=== PATIENT | female | born 1940 | race Caucasian/White ===

== ENCOUNTER 2017-09-04 00:53 | Observation (INO) | payer MEDICARE ==
[~2017-09-04] VITALS: Ht 157.5 cm; Wt 68.5 kg
[~2017-09-04 00:53] MED LIST: DILTIAZEM 24HR120 M1 PO
--- OUTSIDE RECORDS SUMMARY | 2017-09-04 00:57 | XMS REPORT ---
[facility] Address Unknown Phone Unavailable Care Team Providers Care Skein Winder Name Role Phone KIM HAMILTON Unavailable Unavailable Problems This patient has no known problems. Allergies, Adverse Reactions, Alerts This patient has no known allergies or adverse reactions. Medications This patient has no known medications. Results Test Description Test Time Test Comments Text Results Atomic Results Result Comments CHEST SINGLE (PORTABLE) [place] [id number] Patient Name: BRITANY AC MR #: [id number] : 1940 Age/Sex: 76/F Req #: [id number] Adm Physician: Ordered by: KIM HAMILTON MD Report #: [id number] Location: ER Room/Bed: Procedure: [id number] DX/CHEST SINGLE (PORTABLE) Exam Date: 03/30/17 Exam Time: 1600 REPORT STATUS: Signed EXAMINATION: Chest, CHEST SINGLE (PORTABLE) INDICATION: Chest pain COMPARISON : None FINDINGS: Examination limited by overlying external monitoring equipment. LINES: None. Heart: Normal cardiac silhouette. Vascular: The pulmonary vasculature is within normal limits. Atherosclerotic calcifications of the aortic arch. Mediastinum: No mediastinal, hilar, or axillary mass or lymphadenopathy. Lungs: No parenchymal mass. No focal consolidation. Pleura: No pleural effusion. No pneumothorax. Bones: No acute osseous abnormality. Degenerative changes of the thoracic spine. Soft tissues: Normal. Impression: No acute radiographic abnormality. Signed by: Dr. Shahrzad Albarran M.D. on 4:27 PM Dictated By: SHAHRZAD ALBARRAN MD 26 Transcribed By: JOAN on 03/30/171626 COPY TO: KIM HAMILTON MD
[2017-09-04] MEDS ORDERED: SODIUM CHLORIDE 0.9% 1000ML 1,000 ML IV STA (01:09)
[2017-09-04] MEDS ORDERED: METOPROLOL TARTRATE INJ 1 MG/ML VIAL IV ONE ×2 (01:15→01:30)
[2017-09-04] MEDS ORDERED: METOPROLOL TARTRATE INJ 1 MG/ML VIAL ONE (01:16)
[2017-09-04] MEDS ORDERED: CLONIDINE HCL0.1 MG PO (01:19)
[2017-09-04] MEDS ORDERED: XARELTO20 MG PO (01:19)
[2017-09-04] MEDS ORDERED: ANASTROZOLE1 MG PO (01:19)
[2017-09-04] MEDS ORDERED: CALTRATE 600 W1 EACH (01:19)
[2017-09-04] MEDS ORDERED: PRAVASTATIN SOD40 MG PO (01:19)
[2017-09-04] MEDS ORDERED: OMEPRAZOLE40 MG PO (01:19)
[2017-09-04] MEDS ORDERED: SODIUM CHLORIDE 0.9% 1000ML 1,000 ML ONE (01:24)
[2017-09-04 01:27] LABS: BASOPHILS # (AUTO) 0.1 (0.0-0.1); BASOPHILS % 0.7 % (0.0-1.0); EOSINOPHILS # (AUTO) 0.2 (0.0-0.4); EOSINOPHILS % 2.4 % (0.0-6.0); HEMATOCRIT 42.5 % (34.2-44.1); HEMOGLOBIN 14.4 g/dL (12.0-16.0); LYMPHOCYTES # (AUTO) 2.6 (1.0-3.2); LYMPHOCYTES % 30.8 % (18.0-39.1); MEAN CORPUSCULAR HEMOGLOBIN 30.1 pg (28-32); MEAN CORPUSCULAR HGB CONC 33.9 g/dL (31-35); MEAN CORPUSCULAR VOLUME 88.9 fL (81-99); MONOCYTES # (AUTO) 0.8 (0.2-0.8); MONOCYTES % 9.5 % (4.4-11.3); NEUTROPHILS # (AUTO) 4.8 (2.1-6.9); NEUTROPHILS % 56.4 % (38.7-80.0); PLATELET COUNT 293 x10e3/uL (140-360); RED BLOOD COUNT 4.78 x10e6/uL (3.6-5.1); RED CELL DISTRIBUTION WIDTH 13.4 % (11.7-14.4)
[2017-09-04 01:28] LABS: BILIRUBIN,URINE NEGATIVE (NEGATIVE); KETONES,URINE NEGATIVE (NEGATIVE); LEUKOCYTE ESTERASE ,URINE TRACE (NEGATIVE); NITRITE,URINE NEGATIVE (NEGATIVE); URINE UROBILINOGEN 0.2 mg/dL (0.2 - 1)
[2017-09-04 01:30] LABS: CLARITY,URINE CLEAR (CLEAR); COLOR,URINE YELLOW (YELLOW); PROTEIN,URINE DIPSTICK 1+ (NEGATIVE)
[2017-09-04 01:32] LABS: INR 1.81; PARTIAL THROMBOPLASTIN TIME 42.8 seconds (23.8-35.5); PROTHROMBIN TIME 19.7 seconds (11.9-14.5)
[2017-09-04 01:39] LABS: EPITHELIAL CELLS,URINE FEW /LPF; RBC,URINE >50 /HPF (0-5); WBC,URINE (MAN) 0-5 /HPF (0-5)
[2017-09-04 01:41] LABS: ALANINE AMINOTRANSFERASE 28 IU/L (0-55); ALBUMIN 4.1 g/dL (3.5-5.0); ALBUMIN/GLOBULIN RATIO 1.2 (0.8-2.0); ALKALINE PHOSPHATASE 84 IU/L (40-150); ANION GAP 15.8 mmol/L (8-16); BLOOD UREA NITROGEN 13 mg/dL (7-26); BUN/CREATININE RATIO 17 (6-25); CARBON DIOXIDE 26 mmol/L (22-29); CHLORIDE 105 mmol/L (98-107); CREATINE KINASE 88 IU/L (29-168); CREATININE, SERUM 0.78 mg/dL (0.57-1.11); EST GLOMERULAR FILTRATION RATE > 60 ML/MIN (60-); GLUCOSE 106 mg/dL (74-118); MAGNESIUM 2.4 MG/DL (1.3-2.1); POTASSIUM 3.8 mmol/L (3.5-5.1); SODIUM 143 mmol/L (136-145)
[2017-09-04 02:02] LABS: THYROID STIMULATING HORMONE 2.045 uIU/mL (0.350-4.940)
--- NOTE | 2017-09-04 02:34 | Diagnostic Imaging Report ---
CHEST SINGLE (PORTABLE), 09/04/2017 1:09 AM Technique: CHEST SINGLE (PORTABLE) Comparison: 03/30/2017 Clinical history: \S\AFIB RVR \[id number] \S\0145 Findings: See Impression Impression: 1. Stable mildly enlarged cardiac silhouette. Aortic calcification. 2. Suggestion of left basilar opacity which may be artifact of portable technique/soft tissue attenuation versus atelectasis or consolidation. Recommend upright PA and lateral to better assess. 3. No significant effusion or pneumothorax. Signed by: Dr Katt Veroinca MD on 09/04/2017 2:31 AM
[2017-09-04] MEDS ORDERED: NITROGLYCERIN 0.4 MG SUBL SL PRN (03:15)
[2017-09-04] MEDS ORDERED: ONDANSETRON HCL INJ 2 MG/ML VIAL IV PRN (03:15)
[2017-09-04 07:53] VITALS: BP 136/78
[2017-09-04] MEDS ORDERED: FAMOTIDINE 20 MG/2 ML VIAL IV SCH (09:00)
[2017-09-04] MEDS ORDERED: RIVAROXABAN 20 MG TABLET PO SCH ×2 (09:00→21:00)
[2017-09-04] MEDS ORDERED: DILTIAZEM HCL 120 MG CAP CD PO SCH (09:00)
[2017-09-04 09:34] LABS: CREATINE KINASE MB 2.2 ng/mL (0-5.0)
[2017-09-04 12:00] VITALS: BP 141/68
--- NOTE | 2017-09-04 15:28 | Discharge Summary ---
PRIMARY CARE DOCTOR: Rosaline Bryant MD FINAL DIAGNOSIS: Paroxysmal atrial fibrillation with rapid ventricular response. SECONDARY DIAGNOSES 1. Hypertension. 2. Dyslipidemia. 3. Breast cancer. 4. Gastroesophageal reflux disease. MID LEVEL PRACTITIONER: None. PROCEDURES/STUDIES PERFORMED: None. HISTORY: Per H and P. HOSPITAL COURSE: The patient received 2 doses of IV metoprolol and has been in sinus since. The patient is currently stable for discharge. In talking to her, it looks like she has had a stress test and loop recorder and an echocardiogram done since her last episode 5 months ago. 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 At this time, we talked about the possibility of switching her Cardizem to metoprolol and/or ablation. She does not want me to adjust her medication at this time. She will follow up with her loan reviewer. For now, she will continue on her Cardizem and Xarelto for stroke prophylaxis. I have also updated her primary care doctor as well. CONDITION ON DISCHARGE: Stable. DISCHARGE MEDICATIONS: Please see medication reconciliation form. PABLO ARROYO M.D. Job#: [id number] cc:ROSALINE BRYANT MD
== END 2017-09-04 15:20 | disposition home or self-care (01) ==
LOC: ER 00:55 → ERHOLD 03:20 → MED/SURG2 04:00
PROVIDERS: ADMIT Internal Medicine; ATTEND Internal Medicine
DX: I48.0 Paroxysmal atrial fibrillation (principal); I48.92 Unspecified atrial flutter; R07.2 Precordial pain; I10 Essential (primary) hypertension; E78.5 Hyperlipidemia, unspecified; C50.919 Malignant neoplasm of unspecified site of unspecified female breast; Z79.02 Long term (current) use of antithrombotics/antiplatelets; Z87.891 Personal history of nicotine dependence; Z82.49 Family history of ischemic heart disease and other diseases of the circulatory system
CPT/HCPCS: 36415; 71045; 80053; 81001; 82550; 82553; 83735; 83880; 84443; 84484; 85025; 85610; 85730; 93005 ×2; 96360; 96374; 96376; 99284; G0378; J7030

== ENCOUNTER 2019-11-27 09:26 | Emergency (ER) | payer MEDICARE ==
[~2019-11-27] VITALS: Ht 157.5 cm; Wt 68.5 kg
[~2019-11-27 09:26] MED LIST changes: +ANASTROZOLE1 MG PO; +CALTRATE 600 W1 EACH; +CLONIDINE HCL0.1 MG PO; +OMEPRAZOLE40 MG PO; +PRAVASTATIN SOD40 MG PO; +XARELTO20 MG PO
--- OUTSIDE RECORDS SUMMARY | 2019-11-27 09:30 | XMS REPORT | Continuity of Care Document ---
Author Author [facility] t Organization [facility] Address [address] [place] [address] Phone Unavailable Care Team Providers Care Human Resources Benefits Coordinator Name Role Phone MASOOD JIANG, AKANKSHAAN PCP Lucas TOPETE Attphys Unavailable Ruth HAMILTON Attphys Unavailable Payers Payer Name Policy Type Policy Number Effective Date Expiration Date Vasu Holt Care Medicare Advantage [id number] 2003 00:0 0:00 [facility] Problems Condition Name Condition Details Condition Category Status Onset Date Resolution Date Last Treatment Date Treating Clinician Comments Source Paroxysmal atrial flutter Atrial flutter, paroxysmal Problem Active [facility] Chest pain Chest pain Problem Active [facility] Allergies, Adverse Reactions, Alerts This patient has no known allergies or adverse reactions. Medications Ordered Medication Name Filled Medication Name Start Date Stop Da te Current Medication? Ordering Clinician Indication Dosage Frequency Signature (SIG) Comments Components Source Diltiazem Hcl (Diltiazem 24HR Cd) 120 Mg Cap.er.24h Di ltiazem Hcl (Diltiazem 24HR Cd) 120 Mg Cap.er.24h 2017-03-31 00:00:00 2017-04-30 00:00:00 No Clifton Bentley Md 120 Twice A Day [facility] Anastrozole 1 Mg Tablet Anastrozole 1 Mg Tablet Yes 1 Daily [facility] Calcium Carbonate/Vitamin D3 (Caltrate 600 W-D Tablet) 1 Each Tablet Calcium Carbonate/Vitamin D3 (Caltrate 600 W-D Tablet) 1 Each Tablet Yes [facility] Clonidine Hcl 0.1 Mg Tablet Clonidine Hcl 0.1 Mg Tablet Yes 1 Three Times A Day as needed for Elevated Blood Pressure [facility] Omeprazole 40 Mg Capsule. Omeprazole 40 Mg Capsule.dr Yes 20 Daily [facility] Pravastatin Sodium 40 Mg Tablet Pravastatin Sodium 40 Mg Tablet Yes 40 Daily [facility] Rivaroxaban (Xarelto) 20 Mg Tablet Rivaroxaban (Xarelto) 20 Mg Tablet Yes 20 Daily [facility] Procedures This patient has no known procedures. Encounters Start Date/Time End Date/Time Encounter Type [facility] ID Source 2017-09-04 03:20:00 2017-09-04 15:20:00 Discharged Inpatient (obs) ER ROSALEE TOPETE [facility] [id number] [facility] 2017-03-30 19:15:00 2017-03-31 16:01:00 Discharged Inpatient (obs) ER KIM HAMILTON [facility] [id number] [facility] Results Test Description Test Time Test Comments Results Result Comments Source Creatine Kinase MB 2017-09-04 09:40:00 Test Item Creatine Kinase MB (test code = 98303-1) 2.20 0-5.0 [facility]roponin [id number] 09:40:00* Test Item Value Reference Range Interpretation Comments Troponin I (test code = NLP4493) 0.015 0-0.300 [facility]Creatine Cenlfh3707-39-95 09:30:00* Test Item Value Reference Range Interpretation Comments Creatine Kinase (test code = 2157-6) 73 29-168 [facility]cosThyroid Stimulating Hormone (TSH) 2017-09-04 02:08:00* Test Item Value Reference Range Interpretation Comments Thyroid Stimulating Hormone (TSH) (test code = 36161-0) 2.045 0.350-4.940 [facility]cosB-Type Natriuretic Smsgrps5157-94-63 02:02:00* Test Item Value Reference Range Interpretation Comments B-Type Natriuretic Peptide (test code = 25883-9) 65.3 0-100 [facility] Planoodium Zfmff2071-71-06 01:42:00* Test Item Value Reference Range Interpretation Comments Sodium Level (test code = 2951-2) 143 136-145 [facility]Potassium Naqun7927-19-71 01:42:00* Test Item Value Reference Range Interpretation Comments Potassium Level (test code = 2823-3) 3.8 3.5-5.1 [facility]Chloride Zacat9220-45-12 01:42:00* Test Item Value Reference Range Interpretation Comments Chloride Level (test code = 2075-0) 105 98-107 [facility]cosCarbon Dioxide Mbije6372-40-89 01:42:00* Test Item Value Reference Range Interpretation Comments Carbon Dioxide Level (test code = 2028-9) 26 22-29 [facility]cosAnion Aov7405-48-98 01:42:00* Test Item Value Reference Range Interpretation Comments Anion Gap (test code = 11537-6) 15.8 8-16 [facility]cosBlood Urea Glqbnvbl1303-37-73 01:42:00* Test Item Value Reference Range Interpretation Comments Blood Urea Nitrogen (test code = 3094-0) 13 7-26 [facility]cosCreatinine2018-03-14 01:42:00* Test Item Value Reference Range Interpretation Comments Creatinine (test code = 2160-0) 0.78 0.57-1.11 [facility]cosBUN/Creatinine Sibts1337-47-47 01:42:00* Test Item Value Reference Range Interpretation Comments BUN/Creatinine Ratio (test code = 3097-3) 17 6-25 [facility] MarcosEstimat Glomerular Filtration Rate 2017-09-04 01:42:00* Test Item Value Reference Range Interpretation Comments Estimat Glomerular Filtration Rate (test code = 91248-3) 60- >60 Ranges were taken from the National Kidney Disease Education Program and the [facility] literature.Reference ranges:60 or greater: Spmirl03-87 ( for 3 consecutive months): Chronic kidney disease 15 or less: Kidney failureChristus Santa Rosa Hospital – San MarcosGlucose Icznw4698-16-04 01:42:00* Test Item Value Reference Range Interpretation Comments Glucose Level (test code = MJZ1857) 106 74-118 [facility]cosCalcium Fgnrd4495-47-07 01:42:00* Test Item Value Reference Range Interpretation Comments Calcium Level (test code = 27213-5) 10.0 8.4-10.2 [facility]cosMagnesium Bmwbs7194-31-22 01:42:00* Test Item Value Reference Range Interpretation Comments Magnesium Level (test code = 75134-9) 2.4 1.3-2.1 H [facility] MarcosTotal Xltmactcr0270-42-46 01:42:00* Test Item Value Reference Range Interpretation Comments Total Bilirubin (test code = 1975-2) 0.3 0.2-1.2 [facility] MarcosAspartate Amino Transf (AST/SGOT) 2017-09-04 01:42:00* Test Item Value Reference Range Interpretation Comments Aspartate Amino Transf (AST/SGOT) (test code = Aspartate Amino Transf (AST/SGOT)) 22 5-34 [facility]cosAlanine Aminotransferase (ALT/SGPT) 2017-09-04 01:42:00* Test Item Value Reference Range Interpretation Comments Alanine Aminotransferase (ALT/SGPT) (test code = 1742-6) 28 0-55 [facility] Campustal Timqxup1885-84-12 01:42:00* Test Item Value Reference Range Interpretation Comments Total Protein (test code = 2885-2) 7.6 6.5-8.1 [facility] MarcosAlbumin2018-03-14 01:42:00* Test Item Value Reference Range Interpretation Comments Albumin (test code = 1751-7) 4.1 3.5-5.0 [facility]Globulin2018-03-14 01:42:00* Test Item Value Reference Range Interpretation Comments Globulin (test code = 02463-6) 3.5 2.3-3.5 [facility]cosAlbumin/Globulin Lthtm4433-29-90 01:42:00 * Test Item Value Reference Range Interpretation Comments Albumin/Globulin Ratio (test code = 1759-0) 1.2 0.8-2.0 [facility]cosAlkaline Caukvfxduva5334-49-94 01:42:00* Test Item Value Reference Range Interpretation Comments Alkaline Phosphatase (test code = 6768-6) 84 40-150 [facility] MarcosUrine UFL1751-64-92 01:39:00* Test Item Value Reference Range Interpretation Comments Urine WBC (test code = 5821-4) 0-5 0-5 [facility] MarcosUrine AIS7202-53-09 01:39:00* Test Item Value Reference Range Interpretation Comments Urine RBC (test code = 52625-6) 50- 0-5 H [facility] MarcosUrine Rptyzhod5636-30-07 01:39:00* Test Item Value Reference Range Interpretation Comments Urine Bacteria (test code = 22056-1) NONE NONE [facility] MarcosUrine Epithelial Gpfex7924-24-54 01:39:00 * Test Item Value Reference Range Interpretation Comments Urine Epithelial Cells (test code = 55910-7) FEW NONE [facility] MarcosProthrombin Oxrm6476-09-92 01:33:00* Test Item Value Reference Range Interpretation Comments Prothrombin Time (test code = 5902-2) 19.7 11.9-14.5 H [facility] MarcosProthromb Time International Ratio 2017-09-04 01:33:00* Test Item Value Reference Range Interpretation Comments Prothromb Time International Ratio (test code = 6301-6) 1.81 Oral Anticoagulant Therapy INR Values:1. Low Intensity Therapy 1.5 - 2.02 . Moderate Intensity Therapy 2.0 - 3.03. High Intensity Therapy(1) 2.5 - 3. 54. High Intensity Therapy(2) 3.0 - 4.05. Panic Value INR > 5.0 [facility] MarcosActivated Partial Thromboplast Time 2017-09-04 01:33:00* Test Item Value Reference Range Interpretation Comments Activated Partial Thromboplast Time (test code = 13100-4) 42.8 23.8-35.5 H [facility] MarcosUrine Ropzu4774-81-77 01:30:00* Test Item Value Reference Range Interpretation Comments Urine Color (test code = 5778-6) YELLOW YELLOW [facility] MarcosUrine Xkaiigr3898-52-25 01:30:00* Test Item Value Reference Range Interpretation Comments Urine Clarity (test code = 52961-8) CLEAR CLEAR [facility] MarcosUrine Specific Skmtryk8055-04-84 01:30:00 * Test Item Value Reference Range Interpretation Comments Urine Specific [place] (test code = 5811-5) 1.010 1.010-1.02 5 [facility] MarcosUrine tV0783-65-37 01:30:00* Test Item Value Reference Range Interpretation Comments Urine pH (test code = 84425-4) 7 5-7 [facility] MarcosUrine Leukocyte Olhfhxxg0386-27-83 01:30:00* Test Item Value Reference Range Interpretation Comments Urine Leukocyte Esterase (test code = 5799-2) TRACE NEGATIVE H [facility] Pptvhrj1518-84-91 01:30:00* Test Item Value Reference Range Interpretation Comments Urine Nitrite (test code = 73230-9) NEGATIVE NEGATIVE [facility]cosUrine Ldokxdw7473-43-87 01:30:00* Test Item Value Reference Range Interpretation Comments Urine Protein (test code = 5804-0) 1+ NEGATIVE H [facility] MarcosUrine Glucose (UA)2017-09-04 01:30:00* Test Item Value Reference Range Interpretation Comments Urine Glucose (UA) (test code = 2349-9) NEGATIVE NEGATIVE [facility]cosUrine Iowbzsb5894-90-58 01:30:00* Test Item Value Reference Range Interpretation Comments Urine Ketones (test code = 34684-0) NEGATIVE NEGATIVE [facility]cosUrine Lwppztcqkxxa8136-55-77 01:30:00* Test Item Value Reference Range Interpretation Comments Urine Urobilinogen (test code = 03015-7) 0.2 0.2-1 [facility]cosUrine Ftgbisqlh7506-51-13 01:30:00* Test Item Value Reference Range Interpretation Comments Urine Bilirubin (test code = 1978-6) NEGATIVE NEGATIVE [facility]cosUrine Ihbxq5601-77-84 01:30:00* Test Item Value Reference Range Interpretation Comments Urine Blood (test code = 74568-9) 4+ NEGATIVE H [facility] MarcosWhite Blood Gndpz7453-95-11 01:29:00* Test Item Value Reference Range Interpretation Comments White Blood Count (test code = 6690-2) 8.42 4.8-10.8 [facility]cosRed Blood Eniib1787-55-43 01:29:00* Test Item Value Reference Range Interpretation Comments Red Blood Count (test code = 789-8) 4.78 3.6-5.1 [facility]cosHemoglobin2018-03-14 01:29:00* Test Item Value Reference Range Interpretation Comments Hemoglobin (test code = 79520-7) 14.4 12.0-16.0 [facility]cosHematocrit2018-03-14 01:29:00* Test Item Value Reference Range Interpretation Comments Hematocrit (test code = 4544-3) 42.5 34.2-44.1 [facility] MarcosMean Corpuscular Uqnymd8035-13-54 01:29:00* Test Item Value Reference Range Interpretation Comments Mean Corpuscular Volume (test code = 787-2) 88.9 81-99 [facility]cosMean Corpuscular Smrwamcfpm4900-87-25 01:29:00* Test Item Value Reference Range Interpretation Comments Mean Corpuscular Hemoglobin (test code = 785-6) 30.1 28-32 [facility]cosMean Corpuscular Hemoglobin Concent 2017-09-04 01:29:00* Test Item Value Reference Range Interpretation Comments Mean Corpuscular Hemoglobin Concent (test code = 786-4) 33.9 31-35 [facility]cosRed Cell Distribution Zdunm0555-17-84 01:29:00* Test Item Value Reference Range Interpretation Comments Red Cell Distribution Width (test code = 32381-4) 13.4 11.7 -14.4 [facility]cosPlatelet Cbcxx2176-04-29 01:29:00* Test Item Value Reference Range Interpretation Comments Platelet Count (test code = 777-3) 293 140-360 [facility]cosNeutrophils (%) (Auto)2017-09-04 01:29:00 * Test Item Value Reference Range Interpretation Comments Neutrophils (%) (Auto) (test code = 30906-1) 56.4 38.7-80.0 [facility]cosLymphocytes (%) (Auto)2017-09-04 01:29:00 * Test Item Value Reference Range Interpretation Comments Lymphocytes (%) (Auto) (test code = 736-9) 30.8 18.0-39.1 [facility]cosMonocytes (%) (Auto)2017-09-04 01:29:00* Test Item Value Reference Range Interpretation Comments Monocytes (%) (Auto) (test code = 5905-5) 9.5 4.4-11.3 [facility]Eosinophils (%) (Auto)2017-09-04 01:29:00 * Test Item Value Reference Range Interpretation Comments Eosinophils (%) (Auto) (test code = 713-8) 2.4 0.0-6.0 [facility]Basophils (%) (Auto)2017-09-04 01:29:00* Test Item Value Reference Range Interpretation Comments Basophils (%) (Auto) (test code = 706-2) 0.7 0.0-1.0 [facility]cosIM GRANULOCYTES %2017-09-04 01:29:00* Test Item Value Reference Range Interpretation Comments IM GRANULOCYTES % (test code = IM GRANULOCYTES %) 0.2 0.0- 1.0 [facility]Neutrophils # (Auto)2017-09-04 01:29:00* Test Item Value Reference Range Interpretation Comments Neutrophils # (Auto) (test code = 751-8) 4.8 2.1-6.9 [facility]cosLymphocytes # (Auto)2017-09-04 01:29:00* Test Item Value Reference Range Interpretation Comments Lymphocytes # (Auto) (test code = 68539-9) 2.6 1.0-3.2 [facility]cosMonocytes # (Auto)2017-09-04 01:29:00* Test Item Value Reference Range Interpretation Comments Monocytes # (Auto) (test code = 742-7) 0.8 0.2-0.8 [facility]Eosinophils # (Auto)2017-09-04 01:29:00* Test Item Value Reference Range Interpretation Comments Eosinophils # (Auto) (test code = 711-2) 0.2 0.0-0.4 [facility]Basophils # (Auto)2017-09-04 01:29:00* Test Item Value Reference Range Interpretation Comments Basophils # (Auto) (test code = 704-7) 0.1 0.0-0.1 [facility] MarcosAbsolute Immature Granulocyte (auto 2017-09-04 01:29:00* Test Item Value Reference Range Interpretation Comments Absolute Immature Granulocyte (auto (leanne t code = Absolute Immature Granulocyte (auto) 0.02 0-0.1 [facility] MarcosFree Tcnexazdf9254-58-47 09:45:00* Test Item Value Reference Range Interpretation Comments Free Thyroxine (test code = 3024-7) 0.86 0.8-1.8 [facility] MarcosTriglycerides Uvdej9742-45-11 07:19:00* Test Item Value Reference Range Interpretation Comments Triglycerides Level (test code = 2571-8) 98 0-149 [facility] MarcosCholesterol Umzec2307-64-87 07:19:00* Test Item Value Reference Range Interpretation Comments Cholesterol Level (test code = 2093-3) 168 0-199 Less than 200 mg/dL Low Seyc570 - 239 mg/dL Borderline Nqij121 m g/dl and greater High Risk [facility] MarcosLDL Oqcvrqfapub9726-95-28 07:19:00* Test Item Value Reference Range Interpretation Comments LDL Cholesterol (test code = 91583-6) 97 60-130 [facility] MarcosHDL Befcjueolly6015-69-60 07:19:00* Test Item Value Reference Range Interpretation Comments HDL Cholesterol (test code = 2085-9) 51 40-60 [facility]cosCholesterol/HDL Jmigc6249-85-91 07:19:00 * Test Item Value Reference Range Interpretation Comments Cholesterol/HDL Ratio (test code = 9830-1) 3.3 3.0-3.6 [facility] [place] [address] Patient Name: BRITANY AC MR #: [id number] : 1940 Age/Sex: 77/F Req #: [id number] Adm Physician: Ordered by: ROSALEE TOPETE MD Report #: [id number] Location: ER Room/Bed: Procedure: [id number] DX/CHEST SINGLE (PORTABLE) E xam Date: 09/04/17 Exam Time: 144 REPORT STATU S: Signed CHEST SINGLE (PORTABLE), 09/04/2017 1:09 AM Technique: CHEST SI NGLE (PORTABLE) Comparison: 03/30/2017 Clinical history: S AFIB RVR S [id number] 314 S 0145 Findings: See Impression Impression: 1. Stable mildly enlarged cardiac silhouette. Aortic calcification. 2. Suggestion of left basil ar opacity which may be artifact of portable technique/soft tissue attenuation versus atelectasis or consolidation. Recommend upright PA and lateral to bett er assess. 3. No significant effusion or pneumothorax. Signed by: Dr Benito Veronica MD on 09/04/2017 2:31 AM Dictated By: JAELYN VERONICA MD Elect ronically Signed By: JAELYN VERONICA MD on 09/04/17230 Transcribed By: CHER Hernandez on 09/04/17230 COPY TO: ROSALEE TOPETE MD CHEST SINGLE (PORTABLE) [place] [id number] Patient Name: BRITANY AC MR #: [id number] : 1940 Age/Sex: 76/F Req #: [id number] Adm Physician: Ordered by: KIM HAMILTON MD Report #: [id number] Location: ER Room/Bed: Procedure: [id number] DX/CHEST SINGLE (PORTABLE) Exam Date: 03/30/17 Exam Time: 1600 REPORT STA TUS: Signed EXAMINATION: Chest, CHEST SINGLE (PORTABLE) INDICATION: Chest pain COMPARISON: None FINDINGS: Examination limi rufina by overlying external monitoring equipment. LINES: None. Heart: Normal cardiac silhouette. Vascular: The pulmonary vasculature is within no rmal limits. Atherosclerotic calcifications of the aortic arch. Mediasti num: No mediastinal, hilar, or axillary mass or lymphadenopathy. Lungs: No parenchymal mass. No focal consolidation. Pleura: No pleural effusion. N o pneumothorax. Bones: No acute osseous abnormality. Degenerative changes of the thoracic spine. Soft tissues: Normal. Impression: No acut e radiographic abnormality. Signed by: Dr. Shahrzad Albarran M.D. on 03/30/2017 4 :27 PM Dictated By: SHAHRZAD ALBARRAN MD 26 Transcribed By: JOAN on 03/30/171626 COPY TO: KIM HAMILTON MD
[2019-11-27] MEDS ORDERED: LOSARTAN POTASS25 MG PO (09:49)
[2019-11-27] MEDS ORDERED: ATENOLOL50 MG PO (09:49)
[2019-11-27] MEDS ORDERED: ASPIRIN81 MG PO (09:49)
[2019-11-27 10:11] LABS: BASOPHILS % 0.5 % (0.0-1.0); HEMATOCRIT 38.7 % (34.2-44.1); HEMOGLOBIN 13.2 g/dL (12.0-16.0); LYMPHOCYTES # (AUTO) 0.5 (1.0-3.2); LYMPHOCYTES % 8.3 % (18.0-39.1); MEAN CORPUSCULAR HEMOGLOBIN 29.9 pg (28-32); MEAN CORPUSCULAR HGB CONC 34.1 g/dL (31-35); MEAN CORPUSCULAR VOLUME 87.6 fL (81-99); MONOCYTES # (AUTO) 0.3 (0.2-0.8); MONOCYTES % 5.3 % (4.4-11.3); NEUTROPHILS # (AUTO) 4.7 (2.1-6.9); NEUTROPHILS % 85.5 % (38.7-80.0); PLATELET COUNT 130 x10e3/uL (140-360); RED BLOOD COUNT 4.42 x10e6/uL (3.6-5.1); RED CELL DISTRIBUTION WIDTH 13.2 % (11.7-14.4)
[2019-11-27 10:31] LABS: ALBUMIN 3.3 g/dL (3.5-5.0); ALBUMIN/GLOBULIN RATIO 1.1 (0.8-2.0); CREATININE, SERUM 1.13 mg/dL (0.57-1.11)
[2019-11-27 10:37] LABS: CREATINE KINASE MB 2.9 ng/mL (0-5.0)
--- NOTE | 2019-11-27 11:11 | Diagnostic Imaging Report ---
History:Weakness Comparison studies:None Technique: Axial images were obtained from the skull base to the vertex. Coronal and sagittal images reconstructed from the axial data. Intravenous contrast: None Dose modulation, iterative reconstruction, and/or weight based adjustment of the mA/kV was utilized to reduce the radiation dose to as low as reasonably achievable. Findings: Scalp/skull: No abnormalities. Extra-axial spaces: No masses. No fluid collections. Brain sulci: Mildly prominent. Ventricles: Age-appropriate. No hydrocephalus. Parenchyma: Subtle hypodensities in the supratentorial white matter are small vessel ischemic changes. No masses, hemorrhage, acute or chronic cortical vascular insults. Sellar/suprasellar region: No abnormalities. Craniocervical junction: Patent foramen magnum. No Chiari one malformation. Incidental findings: Atherosclerotic calcifications in the carotid siphons . Impression: No acute abnormalities. Chronic findings: 1. Mild generalized volume loss. 2. Mild supratentorial white matter small vessel ischemic changes. Signed by: DR Yuri Stein M.D. on 11/27/2019 11:08 AM
--- NOTE | 2019-11-27 11:27 | NUR ---
PATIENT AND FAMILY UPDATED ON PLAN OR ADMISSION AND TRANSFER FOR FURTHER EVALUATION. PATIENTS DAUGHTER INSISTING THAT DOXYCYCLINE BE PRESCRIBED FOR HER SELF DIAGNOSIS OF TYPHUS DUE TO EXPOSURE OF FERAL CATS AND FLEAS. PATIENTS DAUGHTER INSISTES THAT HER PARTNER HAD THE SAME THING AND THAT SHE WAS REALLY SICK BECAUSE SHE DID NOT GET DOXYCYCLINE QUICK ENOUGH. PATIENT APPEARS IN NO DISTRESS, RESP EVEN AND NONLABORED, REMAINS AFEBRILE.
--- NOTE | 2019-11-27 11:36 | Diagnostic Imaging Report ---
X-ray chest AP portable Comparison: 09/04/2017 History: Weakness Findings: Scoliotic upper thoracic spine with significant AP rotation on this exam. Central airways unremarkable. Cardiomegaly. Thoracic aorta shows atherosclerosis. No definite pleural effusion. No pneumothorax. Lung coronel show no focal nodules, masses or infiltrates. Focal eventration of the right hemidiaphragm suspected. Other skeletal structures as visualized are unremarkable. Upper abdomen unremarkable. Impression: Given the limitations, there is no acute cardiopulmonary disease visualized. Signed by: Ronald Mittal MD on 11/27/2019 11:33 AM
--- NOTE | 2019-11-27 12:48 | Emergency Department Note ---
History of Present Illnes History of Present Illness Chief Complaint: Flu Like Symptoms History of Present Illness This is a 79 year old female arrives to the ED with complaints of generalized malaise. Patient states she has intermittent chest pain. Patient's daughter at bedside is concerned of typhoid poisoning and is insisting mother started on doxycycline. Daughter states mother eating And she is concerned that mother's covered and fleas and if not treated will . Historian: Patient, Family Member Arrival Mode: Car Radiation: non-radiation Severity: mild Past Medical/Family History Physician Review I have reviewed the patient's past medical and family history. Any updates have been documented here. Past Medical History Recent Fever: Yes Clinical Suspicion of Infectio: Yes New/Unexplained Change in Ment: No Past Medical History: Hypertension, Cancer, GERD, Hyperlipedemia Other Medical History: HIGH CHOLESTEROL GERD SMALL DUCT CARCINOMA BREAST Other Surgery: ONE OVARY LUMPECTOMY 02/27/17 RIGHT BREAST ATYPICAL TISSUE BREAST REMOVED Social History Smoking Cessation: Never Smoker Counseling Performed: No Alcohol Use: None Any Illegal Drug Use: No TB Exposure/Symptoms: No Physically hurt or threatened: No Family History Family history of heart diseas: No Other Last Tetanus: UTD Any Pre-Existing Lines (PICC,: No Is patient up to date on immun: Yes Last Flu: OOD Last Pneumovax: OOD Review of Systems Review of Systems Constitutional: no symptoms EENTM: no symptoms Cardiovascular: no symptoms, chest pain Respiratory: no symptoms Gastrointestinal: no symptoms Genitourinary: no symptoms Musculoskeletal: no symptoms Neurological: no symptoms Psychological: no symptoms Endocrine: no symptoms Hematological/Lymphatic: no symptoms Review of other systems All other systems reviewed and negative. Physical Exam Related Data Allergies: Coded Allergies: No Known Drug Allergies (Verified Allergy, Mild, 11/27/19) Triage Vital Signs Vital Signs Date Time Temp Pulse Resp B/P (MAP) Pulse Ox O2 Delivery O2 Flow Rate FiO2 11/27/19 09:34 98.1 92 18 84/53 100 Vital signs reviewed: Yes Physical Exam CONSTITUTIONAL Constitutional: well-developed, well-nourished HENT HENT: normocephalic, atraumatic, oropharynx clear/moist, nose normal HENT L/R: left ext ear normal, right ext ear normal EYES Eyes: PERRL, conjunctivae normal NECK Neck: ROM normal PULMONARY Pulmonary: effort normal, breath sounds normal CARDIOVASCULAR Cardiovascular: regular rhythm, heart sounds normal, capillary refill normal, normal rate GASTROINTESTINAL Abdominal: soft, nontender, bowel sounds normal GENITOURINARY Genitourinary: exam deferred SKIN Skin: warm, dry MUSCULOSKELETAL Musculoskeletal: ROM normal NEUROLOGICAL Neurological: alert, oriented x 3, no gross motor or sensory deficits PSYCHOLOGICAL Psychological: mood/affect normal, judgement normal Results Laboratory Result Diagram: 11/27/19 0944 11/27/19 0944 Laboratory Laboratory Tests Test 11/27/19 09:44 White Blood Count 5.52 x10e3/uL (4.8-10.8) Red Blood Count 4.42 x10e6/uL (3.6-5.1) Hemoglobin 13.2 g/dL (12.0-16.0) Hematocrit 38.7 % (34.2-44.1) Mean Corpuscular Volume 87.6 fL (81-99) Mean Corpuscular Hemoglobin 29.9 pg (28-32) Mean Corpuscular Hemoglobin Concent 34.1 g/dL (31-35) Red Cell Distribution Width 13.2 % (11.7-14.4) Platelet Count 130 x10e3/uL (140-360) Neutrophils (%) (Auto) 85.5 % (38.7-80.0) Lymphocytes (%) (Auto) 8.3 % (18.0-39.1) Monocytes (%) (Auto) 5.3 % (4.4-11.3) Eosinophils (%) (Auto) 0.0 % (0.0-6.0) Basophils (%) (Auto) 0.5 % (0.0-1.0) Neutrophils # (Auto) 4.7 (2.1-6.9) Lymphocytes # (Auto) 0.5 (1.0-3.2) Monocytes # (Auto) 0.3 (0.2-0.8) Eosinophils # (Auto) 0.0 (0.0-0.4) Basophils # (Auto) 0.0 (0.0-0.1) Absolute Immature Granulocyte (auto 0.02 x10e3/uL (0-0.1) Sodium Level 130 mmol/L (136-145) Potassium Level 3.0 mmol/L (3.5-5.1) Chloride Level 98 mmol/L (98-107) Carbon Dioxide Level 21 mmol/L (22-29) Anion Gap 14.0 mmol/L (8-16) Blood Urea Nitrogen 20 mg/dL (7-26) Creatinine 1.13 mg/dL (0.57-1.11) Estimat Glomerular Filtration Rate 46 ML/MIN (60-) BUN/Creatinine Ratio 18 (6-25) Glucose Level 131 mg/dL (74-118) Calcium Level 9.0 mg/dL (8.4-10.2) Total Bilirubin 0.9 mg/dL (0.2-1.2) Aspartate Amino Transf (AST/SGOT) 97 IU/L (5-34) Alanine Aminotransferase (ALT/SGPT) 109 IU/L (0-55) Alkaline Phosphatase 123 IU/L (40-150) Creatine Kinase 250 IU/L (29-168) Creatine Kinase MB 2.90 ng/mL (0-5.0) Troponin I 0.057 ng/mL (0-0.300) Total Protein 6.4 g/dL (6.5-8.1) Albumin 3.3 g/dL (3.5-5.0) Globulin 3.1 g/dL (2.3-3.5) Albumin/Globulin Ratio 1.1 (0.8-2.0) Lab results reviewed: Yes Imaging Imaging results reviewed: Yes Procedures 12 Lead ECG Interpretation Financial Investment Manager: Interpreted by ED physician Rhythm: sinus rhythm QRS axis: normal ST segments normal: No Clinical Impression: non-specific ECG Critical Care Time Subsequent provider I assumed direction of critical care for this patient from another provider of my specialty. Assessment & Plan Assessment & Plan Final Impression: (1) Chest pain Assessment & Plan CBC, CMP, cardiac markers Transfer to [facility] secondary to bed capacity Depart Disposition: TRANS TO OTHER [facility] Last Vital Signs Date Time Temp Pulse Resp B/P (MAP) Pulse Ox O2 Delivery O2 Flow Rate FiO2 11/27/19 11:22 97.6 83 18 100/72 96 Home Meds Reported Medications Losartan Potassium (LOSARTAN POTASSIUM) 25 Mg Tablet, 1 TAB PO DAILY 11/27/19 Atenolol (ATENOLOL) 50 Mg Tablet, 25 MG PO DAILY 11/27/19 Aspirin (ASPIRIN) 81 Mg Tab.chew, 1 TAB PO DAILY 11/27/19 Calcium Carbonate/Vitamin D3 (CALTRATE 600 W-D TABLET) 1 Each Tablet 09/04/17 Anastrozole (ANASTROZOLE) 1 Mg Tablet, 1 MG PO DAILY 09/04/17 Omeprazole (OMEPRAZOLE) 40 Mg Capsule.dr, 20 MG PO DAILY 09/04/17 Rivaroxaban (XARELTO) 20 Mg Tablet, 20 MG PO DAILY 09/04/17 Clonidine Hcl (CLONIDINE HCL) 0.1 Mg Tablet, 1 TAB PO TID PRN for ELEVATED BLOOD PRESSURE, #60 TAB 09/04/17 Pravastatin Sodium (PRAVASTATIN SODIUM) 40 Mg Tablet, 40 MG PO DAILY 09/04/17 Discontinued Scripts Diltiazem Hcl (DILTIAZEM 24HR CD) 120 Mg Cap.er.24h, 120 MG PO BID for 30 Days, 1 Refill Prov:DENIS KOTHARI MD 03/31/17 BILLY ARDON DO Nov 27, 2019 12:48
[2019-11-27 13:37] VITALS: BP 108/49
--- NOTE | 2019-11-27 13:42 | NUR ---
per ok for pt to be driven by daughter to [facility]; daughter is here to take pt to [facility]
== END 2019-11-27 13:45 | disposition other institution (70) ==
LOC: ER 09:26
DX: R07.9 Chest pain, unspecified (principal); R53.81 Other malaise; I10 Essential (primary) hypertension; E78.5 Hyperlipidemia, unspecified; K21.9 Gastro-esophageal reflux disease without esophagitis; Z85.3 Personal history of malignant neoplasm of breast
CPT/HCPCS: 36415; 70450; 71045; 80053; 82550; 82553; 84484; 85025; 93005; 99284

== ENCOUNTER 2024-09-21 20:19 | Emergency (ER) | payer MEDICARE ==
[~2024-09-21] VITALS: Ht 157.5 cm; Wt 71.2 kg
[~2024-09-21 20:19] MED LIST changes: +ASPIRIN81 MG PO; +ATENOLOL50 MG PO; +LOSARTAN POTASS25 MG PO
[2024-09-21 21:56] VITALS: BP 183/73
[2024-09-21] MEDS: CLONIDINE HCL 0.1 MG TAB PO ONE (21:56)
[2024-09-21] MEDS ORDERED: MEDROL4 M2 PO (22:58)
[2024-09-21 23:00] VITALS: PULSE 76; RESP 18; TEMP 98.8; O2SAT 98
[2024-09-22] MEDS: DEXAMETHASONE SOD PHOS 10 MG/1 ML VIAL IM ONE (00:03)
== END 2024-09-21 23:30 | disposition home or self-care (01) ==
LOC: ER 22:52
DX: M25.562 Pain in left knee (principal); M25.462 Effusion, left knee; I10 Essential (primary) hypertension; I48.91 Unspecified atrial fibrillation; E78.5 Hyperlipidemia, unspecified; E78.00 Pure hypercholesterolemia, unspecified; K21.9 Gastro-esophageal reflux disease without esophagitis; Z79.01 Long term (current) use of anticoagulants; Z85.3 Personal history of malignant neoplasm of breast
CPT/HCPCS: 73562; 99284; J1100